=== PATIENT | female | born 1990 | race Hispanic/Latino ===

== ENCOUNTER 2017-11-18 14:26 | Emergency (ER) | payer OTHER ==
[~2017-11-18 14:26] MED LIST: Iopamidol 370 76% 100 ML VIAL ONE
[2017-11-18 14:55] LABS: Bilirubin Small (Negative); Blood, Urine Moderate (Negative); Clarity CLEAR (Clear); Glucose, Urine (Dipstick) Negative (Negative); Leukocyte Negative (Negative); Nitrite Negative (Negative); Protein, Urine (Dipstick) Trace mg/dL (Neg-Trace); Specific Gravity, Urine 1.035 (1.002-1.036); pH, Urine 6.5 (5.0-9.0)
[2017-11-18 14:57] LABS: Bacteria/HPF None Seen HPF (None Seen); Hyaline Casts/LPF 0-3 HYALINE CAST LPF (0-3 Hyaline); WBC/HPF 0-3 HPF (0-3)
[2017-11-18 15:03] LABS: #Basophils 0.1 thou/uL (0.0-0.2); #Lymphocytes 1.8 thou/uL (1.20-3.40); #Monocytes 0.7 thou/uL (0.11-0.59); #Neutrophils 7.9 thou/uL (1.40-6.50); %Basophils 0.6 % (0.0-1.0); %Eosinophils 0.3 % (0.0-10.0); %Lymphocytes 17.2 % (21.0-51.0); %Monocytes 6.9 % (0.0-10.0); Hemoglobin 13.3 g/dL (12.0-16.0); Mean Corpuscular HGB CONC 34.2 g/dL (32.0-36.0); Mean Corpuscular Hemoglobin 32.9 pg (27.0-31.0); Mean Platelet Volume 7.3 fL (7.4-10.4); Platelet Count 274 thou/uL (130-400); RBC Distribution Width 11.7 % (11.5-14.5); Red Blood Cell (RBC) Count 4.06 mill/uL (4.20-5.40); White Blood Cell (WBC) Count 10.5 thou/uL (4.8-10.8)
[2017-11-18 15:26] LABS: ALT (SGPT) 30 U/L (8-55); AST (SGOT) 44 U/L (5-34); Albumin 4.5 g/dL (3.5-5.0); Alkaline Phosphatase 65 U/L (40-150); Anion Gap 14 mmol/L (10-20); BUN (Urea Nitrogen) 18 mg/dL (7.0-18.7); Bilirubin, Total 0.4 mg/dL (0.2-1.2); Calc. Creatinine Clearance 0 mL/min (70-130); Calcium 9.6 mg/dL (7.8-10.44); Carbon Dioxide 22 mmol/L (22-29); Chloride 106 mmol/L (98-107); Estimated GFR-MDRD Greater than 90; Globulin 3.1 g/dL (2.4-3.5); Glucose 91 mg/dL (70-105); Potassium 3.8 mmol/L (3.5-5.1); Protein, Total 7.6 g/dL (6.0-8.3); Sodium 138 mmol/L (136-145)
[2017-11-18 15:39] LABS: Pregnancy Test - Urine (BHCG) Negative (Negative); Pregu Control Background? CLEAR/WHITE (CLR/WHITE); Pregu Control Bar Appear? YES (CONTROL BAR); Specific Gravity 1.035 (1.002-1.036)
[2017-11-18] MEDS ORDERED: Morphine 4 MG/ML Carpuject ONE (16:38)
[2017-11-18] MEDS ORDERED: Ondansetron HCl/PF 4 MG/2 ML Vial ONE (16:39)
[2017-11-18] MEDS ORDERED: Ketorolac Tromethamine 30 MG/ML VIAL ONE (16:52)
--- NOTE | 2017-11-18 19:08 | CT ---
CT ABDOMEN AND PELVIS WITH CONTRAST 11/18/17 HISTORY: Pain. COMPARISON: 05/15/14 examination. FINDINGS: The lung bases are clear. No pericardial effusion. IMPRESSION: There are bilateral adnexal hypodensities as well as another hypodensity in the right adnexa with per ipheral enhancement which may represent a paraovarian cyst. No dilated loops of large or small bowel. The appendix is visualized and is normal. Focal fatty infil tration of hepatic segment IVb. Spleen is normal as well as the pancreas. There is a calculus inferior pole right kidney, punctate, measuring less than 2 mm. Punctate calculus inferior pole left kidney is also present. Also nonobstructive. Skeleton is unremarkable. Scattered bone islands. The aortoiliac contour is normal. IMPRESSION: 1. Normal appendix. 2. Right paraovarian hypodensity somewhat anterior to the broad ligament. This is felt to be sep arate and anterior to the ovary. Ultrasound is recommended. 3. Punctate nonobstructive bilateral renal calculi. No evidence for recently passed stone. 1. POS: [facility]
--- NOTE | 2017-11-18 19:58 | ULT ---
ULTRASOUND PELVIS TRANSVAGINAL 11/18/17 HISTORY: Followup CT finding. COMPARISON: CT same day. FINDINGS: Uterus measures 10.2 x 4.2 x 5.3 cm. Endometrial thickness is 9 mm. Right ovary measures 3.2 x 2.9 x 2.9 cm and the left ovary measures 3.5 x 2.7 x 3.2 cm. There is adeq uate vascular flow to both ovaries. Along the broad ligament, is a 2.1 x 2 x 2.3 cm nonvascular hypoechoic area. IMPRESSION: Corresponding to the CT finding involving the broad ligament is a 2.1 x 2 x 2.3 hypoechoic nonvascula r area which may represent paraovarian cyst. POS: [facility]
[2017-11-20 21:00] LABS: Chlamydia by PCR Not Detected (NotDetected); GC by PCR Not Detected (NotDetected)
== END 2017-11-18 20:21 | disposition home or self-care (01) ==
LOC: ERS 14:26
DX: N83.201 Unspecified ovarian cyst, right side (principal); F41.9 Anxiety disorder, unspecified; Z87.891 Personal history of nicotine dependence; Z79.84 Long term (current) use of oral hypoglycemic drugs; Z79.899 Other long term (current) drug therapy
CPT/HCPCS: 74177; 76856; 80053; 81003; 81015; 81025; 85025; 87480; 87491; 87510; 87591; 87660; 96361; 96374; 96375; J1885; J2270; J2405

== ENCOUNTER 2018-02-13 09:31 | Emergency (ER) | payer OTHER, SELFPAY ==
[2018-02-13 10:16] LABS: #Basophils 0.1 thou/uL (0.0-0.2); #Eosinphils 0.1 thou/uL (0.0-0.7); #Lymphocytes 1.9 thou/uL (1.20-3.40); #Monocytes 0.4 thou/uL (0.11-0.59); #Neutrophils 3.4 thou/uL (1.40-6.50); %Lymphocytes 33.2 % (21.0-51.0); %Neutrophils 57.9 % (42.0-75.0); Hemoglobin 13.4 g/dL (12.0-16.0); Mean Corpuscular HGB CONC 33.1 g/dL (32.0-36.0); Mean Corpuscular Volume 96.5 fl (81.0-99.0); Mean Platelet Volume 7.6 fL (7.4-10.4); Platelet Count 244 thou/uL (130-400); RBC Distribution Width 12.2 % (11.5-14.5); White Blood Cell (WBC) Count 5.8 thou/uL (4.8-10.8)
[2018-02-13 10:27] LABS: BHCG - Serum Negative (NEGATIVE); Pregs Control Background? CLEAR/WHITE (CLR/WHITE); Pregs Control Bar Appear? YES (CONTROL BAR)
[2018-02-13 10:30] LABS: ALT (SGPT) 12 U/L (8-55); AST (SGOT) 13 U/L (5-34); Albumin 4.5 g/dL (3.5-5.0); Alkaline Phosphatase 48 U/L (40-150); Anion Gap 7 mmol/L (10-20); BUN (Urea Nitrogen) 15 mg/dL (7.0-18.7); Bilirubin, Total 0.4 mg/dL (0.2-1.2); Calc. Creatinine Clearance 0 mL/min (70-130); Calcium 9.3 mg/dL (7.8-10.44); Carbon Dioxide 26 mmol/L (22-29); Chloride 107 mmol/L (98-107); Estimated GFR-MDRD 82; Globulin 2.4 g/dL (2.4-3.5); Glucose 77 mg/dL (70-105); Lipase 31 U/L (8-78); Potassium 4.1 mmol/L (3.5-5.1); Protein, Total 6.9 g/dL (6.0-8.3); Sodium 136 mmol/L (136-145)
[2018-02-13 11:01] LABS: Bilirubin Negative (Negative); Blood, Urine Negative (Negative); Clarity CLEAR (Clear); Glucose, Urine (Dipstick) Negative (Negative); Leukocyte Negative (Negative); Nitrite Negative (Negative); Protein, Urine (Dipstick) Negative (Neg-Trace); Specific Gravity, Urine 1.012 (1.002-1.036)
--- NOTE | 2018-02-13 11:58 | ULT ---
ULTRASOUND PELVIC ULTRASOUND TRANSVAGINAL DOPPLER DUPLEX: DATE: 02-13-18 HISTORY: 27-year-old female with generalized pelvic pain. TECHNIQUE: Transabdominal transducer used to evaluate intrapelvic contents using the urinary bladder as an acous tic window. Endovaginal transducer used to visualize intrapelvic contents in greater detail. Color fl ow Doppler and Pulsed Doppler spectral waveform analysis of ovaries. FINDINGS: Uterus: 10 x 5 x 7 cm Endometrial stripe: 1.1 cm (11 mm) Right ovary: 2 x 4 x 2.5 cm Left ovary: 2 x 3.5 x 2.5 cm Uterine leiomyoma (fibroid): none Blood flow in both ovaries: Present Ovarian cyst (defined as 2 cm or greater): None, but there is a 1 cm prominent right follicle. Free fluid in the cul-de-sac: Minimal IMPRESSION: 1. Enlarged uterus, suggestive of multigravida status. 2. Otherwise negative. REYES Blair POS: [facility]
--- NOTE | 2018-02-13 14:07 | CT ---
CT ABDOMEN AND PELVIS WITH IV CONTRAST: Date: 02/13/18 HISTORY: Abdominal pain, right lower quadrant pain with nausea, vomiting, and hematochezia. FINDINGS: The lung bases are clear. The liver, spleen, pancreas, adrenal glands, and kidneys are normal. No opal cified gallstones are seen. No free air or lymphadenopathy is identified in the abdomen or pelvis. A tiny amount of free fluid is noted in the pelvis. A nondistended, normal appearing, air-containing ap pendix is present. Uterus and ovaries are also present. IMPRESSION: No evidence of appendicitis. POS: [facility]
[2018-02-13] MEDS ORDERED: ISOVUE-370 76%-LOCM 1 ML ONE (14:47)
[2018-02-14 22:45] LABS: Chlamydia by PCR Not Detected (NotDetected); GC by PCR Not Detected (NotDetected)
== END 2018-02-13 13:20 | disposition home or self-care (01) ==
LOC: ERS 09:31
DX: R10.31 Right lower quadrant pain (principal); E28.2 Polycystic ovarian syndrome; F41.9 Anxiety disorder, unspecified; Z87.891 Personal history of nicotine dependence; Z79.84 Long term (current) use of oral hypoglycemic drugs
CPT/HCPCS: 36415; 74177; 76856; 80053; 81003; 83690; 84703; 85025; 87480; 87491; 87510; 87591; 87660

== ENCOUNTER 2018-08-06 18:15 | Emergency (ER) | payer OTHER, SELFPAY ==
[~2018-08-06 18:15] MED LIST changes: +ISOVUE-370 76%-LOCM 1 ML ONE; -Iopamidol 370 76% 100 ML VIAL ONE
[2018-08-06 18:42] LABS: #Eosinphils 0.1 thou/uL (0.0-0.7); #Lymphocytes 2.7 thou/uL (1.20-3.40); #Monocytes 0.5 thou/uL (0.11-0.59); #Neutrophils 4.8 thou/uL (1.40-6.50); %Basophils 0.4 % (0.0-1.0); %Lymphocytes 33.5 % (21.0-51.0); %Monocytes 5.8 % (0.0-10.0); %Neutrophils 59.4 % (42.0-75.0); Hemoglobin 13.2 g/dL (12.0-16.0); Mean Corpuscular HGB CONC 32.2 g/dL (32.0-36.0); Mean Corpuscular Hemoglobin 30.8 pg (27.0-31.0); Mean Corpuscular Volume 95.9 fL (78.0-98.0); Mean Platelet Volume 7.2 fL (7.4-10.4); Platelet Count 250 thou/uL (130-400); RBC Distribution Width 11.7 % (11.5-14.5); Red Blood Cell (RBC) Count 4.28 mill/uL (4.20-5.40); White Blood Cell (WBC) Count 8.1 thou/uL (4.8-10.8)
[2018-08-06 18:44] LABS: Bilirubin Negative (Negative); Blood, Urine Negative (Negative); Clarity CLEAR (Clear); Glucose, Urine (Dipstick) Negative (Negative); Leukocyte Negative (Negative); Nitrite Negative (Negative); Pregnancy Test - Urine (BHCG) Negative (Negative); Pregu Control Background? CLEAR/WHITE (CLR/WHITE); Pregu Control Bar Appear? YES (CONTROL BAR); Protein, Urine (Dipstick) Negative (Neg-Trace); Urobilinogen 0.2 mg/dL (0.2-1.0)
[2018-08-06 19:04] LABS: ALT (SGPT) 11 U/L (8-55); AST (SGOT) 18 U/L (5-34); Albumin 4.5 g/dL (3.5-5.0); Alkaline Phosphatase 45 U/L (40-150); Anion Gap 11 mmol/L (10-20); BUN (Urea Nitrogen) 13 mg/dL (7.0-18.7); Bilirubin, Total 0.6 mg/dL (0.2-1.2); Calc. Creatinine Clearance 0 mL/min (70-130); Calcium 9.3 mg/dL (7.8-10.44); Carbon Dioxide 26 mmol/L (22-29); Chloride 107 mmol/L (98-107); Estimated GFR-MDRD Greater than 90; Globulin 2.8 g/dL (2.4-3.5); Glucose 79 mg/dL (70-105); Lipase 34 U/L (8-78); Potassium 3.6 mmol/L (3.5-5.1); Protein, Total 7.3 g/dL (6.0-8.3); Sodium 140 mmol/L (136-145)
[2018-08-06] MEDS ORDERED: Ketorolac Tromethamine 30 MG/ML VIAL ONE (20:14)
--- NOTE | 2018-08-06 20:43 | CT ---
CT ABDOMEN WITH CONTRAST CT PELVIS WITH CONTRAST: DATE: 08-06-18 TIME: 8:13 p.m. HISTORY: 28-year-old female with right flank pain for one week. COMPARISON: 02-13-18 TECHNIQUE: IV injection of iodinated contrast media: Isovue Oral contrast media: Not administered FINDINGS: There is a new finding of a 5 x 4 x 4 cm right adnexal cyst with thin pradhan. The appendix is retrocec al and normal. There is a punctate 3 x 2 x 2 mm calculus at a right renal lower pole calyx. This was present on the previous scan. Otherwise, the bilateral kidneys, abdominal aorta, pancreas, adrenals, spleen, and bladder are normal. There is a small amount of free fluid in the cul-de-sac, slightly gre ater than on previous CT. No small bowel dilatation. No signs of colonic diverticulitis. IMPRESSION: 1. A 5 cm right ovarian cyst. 2. Nephrolithiasis consisting of a single tiny right renal calculus. 3. Normal appendix. REYES Blair POS: [facility]
--- NOTE | 2018-08-06 22:55 | ULT ---
ULTRASOUND TRANSVAGINAL DOPPLER DUPLEX: Date: 08-06-18 Time: 9:45 p.m. History: 28-year-old female with pelvic pain and adnexal cysts. Technique: Endovaginal transducer used to evaluate intrapelvic contents with osborn scale, color flow, and spectra l analysis. FINDINGS: There is an approximately 4.5 x 3.5 x 4.5 cm well circumscribed cyst entirely within the right ovary. The right ovary is expanded by the cyst, measuring approximately 5.5 x 5.5 x 4.5 cm. Blood flow is d emonstrated in the ovarian tissue surrounding this cyst. The left ovary is 4 x 2.5 x 2.5 cm, has normal follicles and also has blood flow. There is a tiny amount of free fluid posterior to the external cervical os. Uterus is approximately 9 x 5 x 5.5 cm. Endometrial stripe is approximately 1 cm (10 mm). IMPRESSION: 4.5 cm right ovarian cyst. POS: [facility]
== END 2018-08-06 23:02 | disposition home or self-care (01) ==
LOC: ERS 18:15
DX: N83.201 Unspecified ovarian cyst, right side (principal); F41.9 Anxiety disorder, unspecified; Z79.84 Long term (current) use of oral hypoglycemic drugs; Z79.899 Other long term (current) drug therapy
CPT/HCPCS: 36415; 74177; 76856; 80053; 81003; 81025; 83690; 85025; 96374; J1885

== ENCOUNTER 2018-11-06 16:08 | Emergency (ER) | payer SELFPAY ==
[2018-11-06 17:03] LABS: #Basophils 0.1 thou/uL (0.0-0.2); #Lymphocytes 1.9 thou/uL (1.20-3.40); #Monocytes 0.6 thou/uL (0.11-0.59); #Neutrophils 7.3 thou/uL (1.40-6.50); %Basophils 0.8 % (0.0-1.0); %Eosinophils 0.4 % (0.0-10.0); %Lymphocytes 19.3 % (21.0-51.0); %Monocytes 6.3 % (0.0-10.0); %Neutrophils 73.2 % (42.0-75.0); Hemoglobin 12.7 g/dL (12.0-16.0); Mean Corpuscular HGB CONC 33.9 g/dL (32.0-36.0); Mean Corpuscular Hemoglobin 32.2 pg (27.0-31.0); Mean Corpuscular Volume 94.9 fL (78.0-98.0); Mean Platelet Volume 7.5 fL (7.4-10.4); Platelet Count 236 thou/uL (130-400); RBC Distribution Width 11.6 % (11.5-14.5); Red Blood Cell (RBC) Count 3.95 mill/uL (4.20-5.40); White Blood Cell (WBC) Count 9.9 thou/uL (4.8-10.8)
[2018-11-06] MEDS ORDERED: Ketorolac Tromethamine 30 MG/ML VIAL ONE (17:48)
[2018-11-06] MEDS ORDERED: Morphine 4 MG/ML VIAL ONE (17:48)
[2018-11-06 17:52] LABS: BHCG - Serum Negative (NEGATIVE); Pregs Control Background? CLEAR/WHITE (CLR/WHITE); Pregs Control Bar Appear? YES (CONTROL BAR)
[2018-11-06] MEDS ORDERED: Ondansetron PF 4 MG/2 ML Vial ONE ×2 (17:56→17:58)
[2018-11-06 18:01] LABS: ALT (SGPT) 18 U/L (8-55); AST (SGOT) 29 U/L (5-34); Albumin 4.2 g/dL (3.5-5.0); Alkaline Phosphatase 44 U/L (40-150); Anion Gap 13 mmol/L (10-20); BUN (Urea Nitrogen) 15 mg/dL (7.0-18.7); Bilirubin, Total 0.4 mg/dL (0.2-1.2); Calc. Creatinine Clearance 0 mL/min (70-130); Calcium 9.2 mg/dL (7.8-10.44); Carbon Dioxide 25 mmol/L (22-29); Chloride 105 mmol/L (98-107); Estimated GFR-MDRD 90; Globulin 2.8 g/dL (2.4-3.5); Glucose 96 mg/dL (70-105); Potassium 3.7 mmol/L (3.5-5.1); Sodium 139 mmol/L (136-145)
[2018-11-06 18:10] LABS: CRP (Inflammatory) Less than 0.50 mg/dL (= or < 0.5); Lipase 15 U/L (8-78)
[2018-11-06] MEDS ORDERED: diphenhydrAMINE 50 MG/ML VIAL ONE (18:18)
[2018-11-06 18:30] LABS: Bilirubin Negative (Negative); Blood, Urine Large (Negative); Clarity CLOUDY (Clear); Glucose, Urine (Dipstick) Negative (Negative); Leukocyte Moderate (Negative); Nitrite Positive (Negative); Protein, Urine (Dipstick) 100 mg/dL (Neg-Trace); Specific Gravity, Urine 1.021 (1.002-1.036); Urobilinogen 0.2 mg/dL (0.2-1.0)
[2018-11-06 18:33] LABS: Bacteria/HPF 4+ HPF (None Seen); Hyaline Casts/LPF 0-3 HYALINE CAST LPF (0-3 Hyaline); Pathc Cast-AUWi Flag 0.14 (0-2.49); Squamous Epithelial 0-3 HPF (0-3)
--- NOTE | 2018-11-06 18:35 | CT ---
CT ABDOMEN AND PELVIS WITH IV CONTRAST: 11/06/2018 HISTORY: Abdominal pain. Lower GI bleed. Low back pain. COMPARISON: 08/06/2018 FINDINGS: The lung bases remain clear. The previously noted nonobstructing inferior pole 3 mm calculus is again present. The liver, spleen, pancreas, bilateral adrenal glands, left kidney, abdominal aorta, decompressed uri nary bladder, and uterus demonstrate a normal CT appearance. The previously seen large, hypodense, cystic structure in the right adnexal region has resolved. The adnexal regions otherwise have a grossly normal appearance bilaterally, and a probable small, involu ting cyst or follicle in the right ovary. There is trace amount of free fluid in the cul-de-sac, probably physiologic in origin. The appendix is visualized and filled with gas and normal in caliber. The small bowel is normal in caliber. A sclerotic density is again present in the right femoral head /neck junction, demonstrating characteristics most compatible with a bone island. IMPRESSION: 1. No acute findings are seen in the abdomen or pelvis. 2. Stable nonobstructing inferior pole right renal calculus. 3. Resolution of previously noted right adnexal cystic lesion. 4. Trace amount of free fluid in the pelvis, likely physiologic in origin. POS: [facility]
[2018-11-06 18:42] LABS: Yeast-AUWi Flag 71.9 (0-25.0)
[2018-11-06 18:46] LABS: Pregnancy Test - Urine (BHCG) Negative (Negative); Pregu Control Background? CLEAR/WHITE (CLR/WHITE); Pregu Control Bar Appear? YES (CONTROL BAR); Specific Gravity 1.021 (1.002-1.036)
[2018-11-06 18:47] LABS: Yeast-All Forms None Seen HPF (None Seen)
[2018-11-06] MEDS ORDERED: Sodium Chloride 0.9% 100 ML ONE (19:18)
[2018-11-06] MEDS ORDERED: cefTRIAXone\\ROCEPHIN 1 GM VIAL ONE (19:19)
== END 2018-11-06 21:36 | disposition home or self-care (01) ==
LOC: ERS 16:08
DX: N12 Tubulo-interstitial nephritis, not specified as acute or chronic (principal); K62.5 Hemorrhage of anus and rectum; F41.9 Anxiety disorder, unspecified; Z87.891 Personal history of nicotine dependence
CPT/HCPCS: 36415; 74177; 80053; 81003; 81015; 81025; 83690; 84703; 85025; 86140; 96361; 96365; 96375; J0696; J1200; J1885; J2270; J2405; J7050

== ENCOUNTER 2018-12-11 04:39 | Emergency (ER) | payer SELFPAY ==
[2018-12-11 05:15] LABS: #Eosinphils 0.1 thou/uL (0.0-0.7); #Lymphocytes 2.2 thou/uL (1.20-3.40); #Monocytes 0.6 thou/uL (0.11-0.59); #Neutrophils 7.2 thou/uL (1.40-6.50); %Basophils 0.4 % (0.0-1.0); %Lymphocytes 21.6 % (21.0-51.0); %Monocytes 6.2 % (0.0-10.0); %Neutrophils 70.8 % (42.0-75.0); Hemoglobin 13.8 g/dL (12.0-16.0); Mean Corpuscular HGB CONC 33.5 g/dL (32.0-36.0); Mean Corpuscular Hemoglobin 32.4 pg (27.0-31.0); Mean Corpuscular Volume 96.8 fL (78.0-98.0); Mean Platelet Volume 7.4 fL (7.4-10.4); Platelet Count 258 thou/uL (130-400); RBC Distribution Width 11.3 % (11.5-14.5); Red Blood Cell (RBC) Count 4.26 mill/uL (4.20-5.40); White Blood Cell (WBC) Count 10.2 thou/uL (4.8-10.8)
[2018-12-11 05:35] LABS: ALT (SGPT) 11 U/L (8-55); AST (SGOT) 14 U/L (5-34); Albumin 4.3 g/dL (3.5-5.0); Alkaline Phosphatase 43 U/L (40-150); Anion Gap 13 mmol/L (10-20); BUN (Urea Nitrogen) 17 mg/dL (7.0-18.7); Bilirubin, Total 0.4 mg/dL (0.2-1.2); Calc. Creatinine Clearance 0 mL/min (70-130); Calcium 9.1 mg/dL (7.8-10.44); Carbon Dioxide 25 mmol/L (22-29); Chloride 106 mmol/L (98-107); Estimated GFR-MDRD 81; Globulin 2.8 g/dL (2.4-3.5); Glucose 101 mg/dL (70-105); Potassium 3.8 mmol/L (3.5-5.1); Protein, Total 7.1 g/dL (6.0-8.3); Sodium 140 mmol/L (136-145)
[2018-12-11 05:39] LABS: Bilirubin Negative (Negative); Blood, Urine Large (Negative); Clarity CLOUDY (Clear); Glucose, Urine (Dipstick) Negative (Negative); Leukocyte Small (Negative); Nitrite Positive (Negative); Protein, Urine (Dipstick) 300 mg/dL (Neg-Trace); Specific Gravity, Urine 1.028 (1.002-1.036); Urobilinogen 0.2 mg/dL (0.2-1.0)
[2018-12-11 05:41] LABS: Bacteria/HPF 4+ HPF (None Seen); Hyaline Casts/LPF 4-6 HYALINE CAST LPF (0-3 Hyaline); Pathc Cast-AUWi Flag 1.67 (0-2.49); Pregnancy Test - Urine (BHCG) Negative (Negative); RBC/HPF GREATER THAN 50-TNTC HPF (0-3)
[2018-12-11 05:42] LABS: Pregu Control Background? CLEAR/WHITE (CLR/WHITE); Pregu Control Bar Appear? YES (CONTROL BAR); Specific Gravity 1.028 (1.002-1.036)
[2018-12-11] MEDS ORDERED: Ondansetron PF 4 MG/2 ML Vial ONE (05:45)
[2018-12-11] MEDS ORDERED: Ketorolac Tromethamine 30 MG/ML VIAL ONE (05:45)
[2018-12-11] MEDS ORDERED: cefTRIAXone\\ROCEPHIN 1 GM VIAL ONE (06:06)
--- NOTE | 2018-12-11 08:37 | CT ---
PRELIMINARY REPORT/[facility]/EMERGENTY AFTER-HOURS PROCEDURE CT Abdomen and Pelvis With Contrast EXAM DATE/TIME: 12/11/2018 6:20 AM CLINICAL HISTORY: 28 years old, female; Pain; Abdominal pain; Generalized; Additional info: F28 presents to ed for back pain. PT reports the pain woke her from sleep, radiates to front. PT reports n/v that began after pa in. PT reports having bladder infection a few weeks ago with similar SX, finished abx. PT denies feve r or chills. PT has not eaten today. PT reports changes in stool, more frequent and harder stools. PT denies ent SX, resp SX, denies rash, denies changes or pain w urination. Lmp 12/05/18. Hx- allergy to reglan. TECHNIQUE: Axial computed tomography images of the abdomen and pelvis with intravenous contrast. Coronal reforma tted images were created and reviewed. COMPARISON: No relevant prior studies available. FINDINGS: Lower thorax: The visualized portions of the lung bases are normal. ABDOMEN: Liver: There are no focal liver lesions identified. Gallbladder and bile ducts: The gallbladder is normal. There is no evidence of biliary ductal dilatio n. Pancreas: The pancreas appears normal. No ductal dilatation. Spleen: The spleen is normal. Adrenals: The adrenal glands are normal. Kidneys and ureters: The kidneys appear normal. No hydronephrosis. Stomach and bowel: The stomach is normal. The duodenum is unremarkable. The colon is normal. Appendix: A normal appendix is identified. PELVIS: Bladder: The bladder is normal. Reproductive: The uterus is normal. ABDOMEN and PELVIS: Intraperitoneal space: Normal. No free air. No significant fluid collection. Bones/joints: No acute fracture. No dislocation. Soft tissues: Unremarkable. Vasculature: Normal. No abdominal aortic aneurysm. Lymph nodes: Normal. No enlarged lymph nodes. IMPRESSION: No acute abdominal pelvic pathology. Thank you for allowing us to participate in the care of your patient. Dictated and Authenticated by: Fredrick Degroot MD 12/11/2018 6:49 AM Central Time ([place] & [place]) FINAL REPORT CT ABDOMEN WITH CONTRAST CT PELVIS WITH CONTRAST: Date: 12/11/18 COMPARISON: 11/06/18. HISTORY: Low back pain. Flank pain. FINDINGS: This report is in agreement with the preliminary report by [facility]. No acute abnormalities in the abdome n or pelvis. No evidence of obstructive uropathy. No evidence of bowel obstruction. Normal caliber ap pendix is identified. POS: [facility]
[2018-12-11] MEDS ORDERED: ISOVUE-370 76%-LOCM 1 ML ONE (16:57)
== END 2018-12-11 06:55 | disposition home or self-care (01) ==
LOC: ERS 04:39
DX: N12 Tubulo-interstitial nephritis, not specified as acute or chronic (principal); F41.9 Anxiety disorder, unspecified; Z87.891 Personal history of nicotine dependence
CPT/HCPCS: 36415; 74177; 80053; 81003; 81015; 81025; 83690; 85025; 87077; 87086; 87186; 96365; 96375; J0696; J1885; J2405; Q9966

== ENCOUNTER 2019-03-29 17:14 | Emergency (ER) | payer SELFPAY ==
--- NOTE | 2019-03-29 17:50 | RAD ---
3 views right wrist. HISTORY: Right wrist pain after fall and swelling. AP, lateral and oblique views right wrist is obtained. 3 views right wrist demonstrate no evidence of right wrist fractures, subluxations or bony lesions. IMPRESSION: normal 3 views right wrist.
== END 2019-03-29 18:18 | disposition home or self-care (01) ==
LOC: ERS 17:14
DX: S60.211A Contusion of right wrist, initial encounter (principal); Z87.891 Personal history of nicotine dependence; W19.XXXA Unspecified fall, initial encounter

== ENCOUNTER 2019-05-14 20:54 | Emergency (ER) | payer SELFPAY | END 2019-05-14 21:50 | disposition left against medical advice (07) | LOC: ERS 20:54 | DX: Z53.21 Procedure and treatment not carried out due to patient leaving prior to being seen by health care provider (principal) ==

== ENCOUNTER 2019-05-16 10:18 | Emergency (ER) | payer SELFPAY ==
[2019-05-16 10:59] LABS: Bilirubin Negative (Negative); Blood, Urine Negative (Negative); Glucose, Urine (Dipstick) Negative (Negative); Leukocyte Negative (Negative); Nitrite Negative (Negative); Protein, Urine (Dipstick) Negative (Neg-Trace); Urobilinogen 0.2 mg/dL (Less than 2)
[2019-05-16 11:00] LABS: #Basophils 0.1 thou/uL (0.0-0.2); #Lymphocytes 2.2 thou/uL (1.20-3.40); #Monocytes 0.4 thou/uL (0.11-0.59); %Basophils 0.7 % (0.0-1.0); %Eosinophils 0.6 % (0.0-10.0); %Lymphocytes 28.5 % (21.0-51.0); %Monocytes 5.2 % (0.0-10.0); Hemoglobin 13.7 g/dL (12.0-16.0); Mean Corpuscular HGB CONC 33.5 g/dL (32.0-36.0); Mean Corpuscular Hemoglobin 31.5 pg (27.0-31.0); Mean Corpuscular Volume 93.9 fL (78.0-98.0); Mean Platelet Volume 7.2 fL (7.4-10.4); Platelet Count 243 thou/uL (130-400); RBC Distribution Width 11.5 % (11.5-14.5); Red Blood Cell (RBC) Count 4.36 mill/uL (4.20-5.40); White Blood Cell (WBC) Count 7.6 thou/uL (4.8-10.8)
[2019-05-16 11:03] LABS: Clarity Clear (Clear)
[2019-05-16] MEDS ORDERED: Ondansetron ODT 4 MG TAB ONE (12:28)
--- NOTE | 2019-05-16 14:51 | ULT ---
PELVIC ULTRASOUND: COMPARISON: None. HISTORY: female with abdominal pain. TECHNIQUE: Multiplanar, osborn scale, and color Doppler images were obtained in a transabdominal and transvaginal pelvic ultrasound. Spectral analysis of the Doppler waveforms of the ovaries was performed. FINDINGS: There is a small gestational sac within the uterus. Does not yet contain a pole or yolk sac. Mean sac diameter is 0.92 cm which estimates gestational age at 5 weeks 5 days. A small amount of free fluid is seen in the pelvis. Both ovaries are normal in size and appearance a nd demonstrate normal internal flow. IMPRESSION: Likely early intrauterine with estimated age of 5 weeks 5 days. POS: [facility]
== END 2019-05-16 14:53 | disposition home or self-care (01) ==
LOC: ERS 10:18
DX: O26.891 Other specified pregnancy related conditions, first trimester (principal); R10.9 Unspecified abdominal pain; F41.9 Anxiety disorder, unspecified; Z87.891 Personal history of nicotine dependence; Z3A.01 Less than 8 weeks gestation of pregnancy
CPT/HCPCS: 36415; 76856; 81003; 84702; 85025; Q0162

== ENCOUNTER 2019-05-29 09:53 | Emergency (ER) | payer SELFPAY | END 2019-05-29 11:43 | disposition left against medical advice (07) | LOC: ERS 09:53 | DX: Z53.21 Procedure and treatment not carried out due to patient leaving prior to being seen by health care provider (principal) ==

== ENCOUNTER 2019-07-19 07:51 | Outpatient (CLI) | payer OTHER ==
--- NOTE | 2019-07-19 09:52 | ULT ---
LIMITED LEFT BREAST ULTRASOUND: 07/19/2019 PROVIDED CLINICAL HISTORY: Left breast palpable abnormality. FINDINGS: Limited sonographic interrogation was performed to the left breast, at the 12 and 1 o'clock positions , in the region of reported palpable concern. The sonographic appearance of the breast parenchyma in this region is normal. IMPRESSION: No sonographic abnormality is evident to correlate with the reported palpable finding. Negative imaging findings should not preclude further evaluation of a clinically suspicious area. Th e patient is referred back to her clinician. POS: [facility]
== END 2019-07-19 07:52 | disposition home or self-care (01) ==
LOC: BICULT 07:51
PROVIDERS: ATTEND Family Medicine
DX: Z34.81 Encounter for supervision of other normal pregnancy, first trimester (principal); N63.0 Unspecified lump in unspecified breast

== ENCOUNTER 2019-08-15 16:55 | Emergency (ER) | payer OTHER | END 2019-08-15 17:45 | disposition home or self-care (01) | LOC: ERS 16:55 | DX: M79.622 Pain in left upper arm (principal); F41.9 Anxiety disorder, unspecified; E28.2 Polycystic ovarian syndrome; Z87.891 Personal history of nicotine dependence | CPT/HCPCS: 99281 ==

== ENCOUNTER 2019-09-16 06:06 | Emergency (ER) | payer OTHER ==
[2019-09-16 06:40] LABS: #Basophils 0.1 thou/uL (0.0-0.2); #Eosinphils 0.1 thou/uL (0.0-0.7); #Lymphocytes 1.9 thou/uL (1.20-3.40); #Monocytes 0.5 thou/uL (0.11-0.59); #Neutrophils 5.7 thou/uL (1.40-6.50); %Eosinophils 1.3 % (0.0-10.0); %Lymphocytes 23.5 % (21.0-51.0); %Monocytes 6.1 % (0.0-10.0); %Neutrophils 68.2 % (42.0-75.0); Hemoglobin 11.3 g/dL (12.0-16.0); Mean Corpuscular HGB CONC 34.7 g/dL (32.0-36.0); Mean Corpuscular Hemoglobin 33.1 pg (27.0-31.0); Mean Corpuscular Volume 95.3 fL (78.0-98.0); Platelet Count 249 thou/uL (130-400); RBC Distribution Width 11.4 % (11.5-14.5); Red Blood Cell (RBC) Count 3.42 mill/uL (4.20-5.40); White Blood Cell (WBC) Count 8.3 thou/uL (4.8-10.8)
[2019-09-16 06:51] LABS: Bacteria/HPF 3+ HPF (None Seen); Bilirubin Negative (Negative); Blood, Urine Trace (Negative); Clarity Turbid (Clear); Glucose, Urine (Dipstick) Normal (Negative); Leukocyte 500 Leu/uL (Negative); Nitrite Negative (Negative); Protein, Urine (Dipstick) 50 mg/dL (Neg-Trace); Squamous Epithelial Greater than 50 HPF (0-3); Urobilinogen Normal mg/dL (Less than 2)
[2019-09-16 07:01] LABS: ALT (SGPT) 7 U/L (8-55); AST (SGOT) 13 U/L (5-34); Albumin 3.9 g/dL (3.5-5.0); Alkaline Phosphatase 49 U/L (40-110); Anion Gap 12 mmol/L (10-20); BUN (Urea Nitrogen) 14 mg/dL (7.0-18.7); Bilirubin, Total 0.4 mg/dL (0.2-1.2); Calc. Creatinine Clearance 0 mL/min (70-130); Calcium 8.7 mg/dL (7.8-10.44); Carbon Dioxide 23 mmol/L (22-29); Chloride 106 mmol/L (98-107); Estimated GFR-MDRD Greater than 90; Globulin 2.7 g/dL (2.4-3.5); Glucose 79 mg/dL (70-105); Potassium 3.9 mmol/L (3.5-5.1); Protein, Total 6.6 g/dL (6.0-8.3); Sodium 137 mmol/L (136-145)
[2019-09-16] MEDS ORDERED: Ondansetron ODT 4 MG TAB ONE (07:44)
== END 2019-09-16 08:29 | disposition home or self-care (01) ==
LOC: ERS 06:06
DX: O23.12 Infections of bladder in pregnancy, second trimester (principal); O21.9 Vomiting of pregnancy, unspecified; O99.342 Other mental disorders complicating pregnancy, second trimester; F41.9 Anxiety disorder, unspecified; Z87.891 Personal history of nicotine dependence; Z3A.23 23 weeks gestation of pregnancy
CPT/HCPCS: 36415; 80053; 81003; 81015; 85025; 86900; 86901; 99284; Q0162

== ENCOUNTER 2019-09-17 08:35 | Day surgery (SDC) | payer OTHER ==
[2019-09-17 09:50] LABS: #Eosinphils 0.1 thou/uL (0.0-0.7); #Lymphocytes 1.7 thou/uL (1.20-3.40); #Monocytes 0.4 thou/uL (0.11-0.59); #Neutrophils 6.2 thou/uL (1.40-6.50); %Basophils 0.3 % (0.0-1.0); %Eosinophils 0.8 % (0.0-10.0); %Lymphocytes 19.6 % (21.0-51.0); %Monocytes 5.2 % (0.0-10.0); BHCG - Serum POSITIVE (NEGATIVE); Hemoglobin 11.9 g/dL (12.0-16.0); Mean Corpuscular HGB CONC 34.2 g/dL (32.0-36.0); Mean Corpuscular Hemoglobin 32.6 pg (27.0-31.0); Mean Corpuscular Volume 95.1 fL (78.0-98.0); Mean Platelet Volume 7.6 fL (7.4-10.4); Platelet Count 253 thou/uL (130-400); Pregs Control Background? CLEAR/WHITE (CLR/WHITE); Pregs Control Bar Appear? YES (CONTROL BAR); RBC Distribution Width 11.4 % (11.5-14.5); Red Blood Cell (RBC) Count 3.64 mill/uL (4.20-5.40); White Blood Cell (WBC) Count 8.4 thou/uL (4.8-10.8)
[2019-09-17 09:59] LABS: ALT (SGPT) 10 U/L (8-55); AST (SGOT) 14 U/L (5-34); Alkaline Phosphatase 47 U/L (40-110); Anion Gap 12 mmol/L (10-20); BUN (Urea Nitrogen) 11 mg/dL (7.0-18.7); Bilirubin, Total 0.4 mg/dL (0.2-1.2); Calc. Creatinine Clearance 0 mL/min (70-130); Calcium 8.8 mg/dL (7.8-10.44); Carbon Dioxide 23 mmol/L (22-29); Chloride 105 mmol/L (98-107); Estimated GFR-MDRD Greater than 90; Globulin 2.9 g/dL (2.4-3.5); Glucose 116 mg/dL (70-105); Lipase 16 U/L (8-78); Potassium 3.9 mmol/L (3.5-5.1); Protein, Total 6.9 g/dL (6.0-8.3); Sodium 136 mmol/L (136-145)
[2019-09-17 10:25] VITALS: BMI 27.3
--- NOTE | 2019-09-17 11:48 | ULT ---
GALLBLADDER ULTRASOUND: Date: 09/17/19 HISTORY: Right upper quadrant pain. FINDINGS: Real-time imaging of the right upper quadrant shows a somewhat contracted gallbladder. The patient wa s reportedly not NPO for this procedure and there is a negative ultrasound Mclaughlin's sign. The common bile duct is in the 5-6 mm range. Visualized liver parenchyma is normal. The liver measures 13.4 cm i n length. Right kidney is normal in size and not obstructed. Pancreas partially obscured. IMPRESSION: Contracted gallbladder. Patient was not NPO for this procedure. No gallstones identified. POS: [facility]
--- NOTE | 2019-09-17 23:02 | PRG ---
DATE OF SERVICE: 09/17/2019 PRIMARY OB: Brian Clark MD CHIEF COMPLAINT: Abdominal pain. HISTORY OF PRESENT ILLNESS: The patient is a 29-year-old G4, P2 female with an intrauterine at 23 weeks and 3 days, re-presenting to the emergency room this morning with abdominal pain that began about 3:30 in the morning. She was initially seen yesterday in the emergency room for nausea and vomiting at which point a CBC, CMP, and ultrasound were performed and found to be normal and was diagnosed with a urinary tract infection, sent home with Keflex. The patient re-presented to the emergency room today again with right upper quadrant and upper left quadrant abdominal pain, rated initially 10/10. Workup including a right upper quadrant ultrasound showed all normal findings. No evidence of gallstones and was sent up to Labor and Delivery for evaluation. Here in Labor and Delivery, during our evaluation, the patient reported that she has had 2-day sudden onset of nausea, vomiting, and diarrhea and has been able to maintain fluids tolerably with Zofran that had been prescribed. She denies any uterine contractions or any obstetrical complaints. She reports that this pain that she is having in her abdomen is in her lateral side just inferior to the rib cage. This area hurts worse with activities and movements, deep breaths. The patient denies any fever. She denies headache, chest pain, shortness of breath. She reports nausea, vomiting, diarrhea. Denies constipation. Denies any new rashes, hip problems, knee problems, muscle weakness. Denies vaginal bleeding, leakage of fluid. Denies urinary urgency or frequency. PAST MEDICAL HISTORY: Negative. PAST SURGICAL HISTORY: Negative. ALLERGIES: REGLAN WHICH CAUSES FACIAL SPASMS. MEDICATIONS: vitamins. SOCIAL HISTORY: Denies drug, alcohol, or tobacco use. OB HISTORY: She has had 2 term spontaneous vaginal deliveries and a 1st trimester miscarriage. OB LABS: Unavailable at time of dictation. This morning, white count is 8.4, hemoglobin 11.9, hematocrit 34.6, and platelets of 253,000. Sodium 136, potassium 3.9, chloride 105, BUN 11, creatinine 0.64, glucose of 116, AST of 14, ALT of 10, lipase of 16. REVIEW OF SYSTEMS: Per HPI. PHYSICAL EXAMINATION: VITAL SIGNS: Blood pressure is 119/68, temperature 98.3, pulse of 80, respiratory rate 18, saturating 99% on room air. GENERAL: The patient is alert, oriented, cooperative, and pleasant to interact with. She appears to be in some mild discomfort. HEENT: Extraocular muscles intact and symmetrical. RESPIRATORY: Lungs are clear to auscultation bilaterally. HEART: Has a regular rate and rhythm. ABDOMEN: Gravid, soft. No acute findings such as peritoneal signs, rebound, or radiation. She does have some point tenderness in the right lateral quadrant over oblique muscular area. This is the area that is causing her pain, it is the area that hurts when she takes a deep breath and when she moves. The patient has negative Mclaughlin sign. EXTREMITIES: Nontender, nonedematous. heart tracing: Fetus has a baseline in the 140s with moderate long-term variability, actually positive 10 x 10 and a couple of 15 x 15 accelerations, no decelerations. Tocometer has some minimal irritability, but not felt by the patient. ASSESSMENT AND PLAN: The patient is a 29-year-old G4, P2 female with an intrauterine at 23 weeks and 3 days, presenting with a 2-day history of nausea, vomiting, and diarrhea with a 1-day history of acute upper lateral abdominal pain. The patient has no evidence of gallbladder disease or other acute findings on imaging and lab work. The patient has no evidence of labor or other concerning obstetric findings. Working diagnosis is a viral gastroenteritis with musculoskeletal pain likely secondary to vomiting and muscle spasm. The patient has been given IV fluids. She reports that she is able to keep fluid down at home with the Zofran, which we have encouraged that she continue to take. The patient has been counseled that these symptoms should improve with the next day or two and she has been counseled to make an appointment with Dr. Clark to see her in the next few days for followup. Fetus is reassuring for gestational age. Job ID: [id number]
== END 2019-09-17 11:15 | disposition home or self-care (01) ==
LOC: ERS 08:35 → L&D/OP 09:54
PROVIDERS: ATTEND Family Medicine
DX: O99.89 Other specified diseases and conditions complicating pregnancy, childbirth and the puerperium (principal); R10.11 Right upper quadrant pain; R10.12 Left upper quadrant pain; Z3A.23 23 weeks gestation of pregnancy; Z88.8 Allergy status to other drugs, medicaments and biological substances
CPT/HCPCS: 36415; 76705; 80053; 83690; 84703; 85025; 99282

== ENCOUNTER 2019-09-21 09:36 | Emergency (ER) | payer OTHER | END 2019-09-21 10:38 | disposition left against medical advice (07) | LOC: ERS 09:36 | DX: Z53.21 Procedure and treatment not carried out due to patient leaving prior to being seen by health care provider (principal) ==

== ENCOUNTER 2019-12-14 00:20 | Day surgery (SDC) | payer OTHER ==
[2019-12-14 00:52] VITALS: BMI 32.1
[2019-12-14] MEDS ORDERED: hydrALAZINE 20 MG/ML VIAL SLOW IVP PRN (01:08)
[2019-12-14] MEDS ORDERED: Morphine 4 MG/ML VIAL SLOW IVP SCH ×2 (01:15→04:45)
[2019-12-14] MEDS ORDERED: diphenhydrAMINE 50 MG/ML VIAL IVP SCH ×2 (01:15→04:00)
[2019-12-14 01:24] LABS: Bacteria/HPF 1+ HPF (None Seen); Bilirubin Negative (Negative); Blood, Urine Negative (Negative); Clarity Clear (Clear); Glucose, Urine (Dipstick) Normal (Negative); Leukocyte Negative Leu/uL (Negative); Nitrite Negative (Negative); Protein, Urine (Dipstick) Negative (Neg-Trace); RBC/HPF 0-3 HPF (0-3); Squamous Epithelial 0-3 HPF (0-3); Urobilinogen Normal mg/dL (Less than 2); WBC/HPF 0-3 HPF (0-3)
[2019-12-14 01:57] LABS: Hemoglobin 10.9 g/dL (12.0-16.0); Mean Corpuscular HGB CONC 32.1 g/dL (32.0-36.0); Mean Corpuscular Hemoglobin 29.3 pg (27.0-31.0); Mean Corpuscular Volume 91.3 fL (78.0-98.0); Mean Platelet Volume 7.5 fL (7.4-10.4); Platelet Count 283 thou/uL (130-400); Red Blood Cell (RBC) Count 3.72 mill/uL (4.20-5.40); White Blood Cell (WBC) Count 14.1 thou/uL (4.8-10.8)
[2019-12-14] MEDS: Magnesium 2 GM/50 ML 2 GM in Premix Bag 1 BAG IVPB SCH ×2 (02:18→03:24)
[2019-12-14 02:22] LABS: ALT (SGPT) 11 U/L (8-55); AST (SGOT) 13 U/L (5-34); Albumin 3.5 g/dL (3.5-5.0); Alkaline Phosphatase 121 U/L (40-110); Anion Gap 11 mmol/L (10-20); BUN (Urea Nitrogen) 8 mg/dL (7.0-18.7); Bilirubin, Total 0.3 mg/dL (0.2-1.2); Calc. Creatinine Clearance 193 mL/min (70-130); Carbon Dioxide 25 mmol/L (22-29); Chloride 104 mmol/L (98-107); Estimated GFR-MDRD Greater than 90; Globulin 3.4 g/dL (2.4-3.5); Glucose 95 mg/dL (70-105); Potassium 4.2 mmol/L (3.5-5.1); Protein, Total 6.9 g/dL (6.0-8.3); Sodium 136 mmol/L (136-145); Uric Acid 3.5 mg/dL (2.6-6.0)
[2019-12-14] MEDS ORDERED: Lactated Ringer's 1,000 ML IV SCH (04:15)
[2019-12-14] MEDS ORDERED: Ondansetron ODT 8 MG TAB SL SCH (04:30)
--- NOTE | 2019-12-14 08:09 | PRG ---
DATE OF SERVICE: 12/14/2019 PRIMARY OB: Brian Clark MD CHIEF COMPLAINT: Headache. HISTORY OF PRESENT ILLNESS: The patient is a 29-year-old G4, P2, female with an intrauterine at 36 weeks and 0 days, who is presenting to Labor and Delivery with a several-day history of severe headache, worse that she has ever had. She had seen Dr. Clark earlier in the day in the morning and was prescribed muscle relaxant and Tylenol No. 3 with preliminary diagnosis of tension headache. However, these medications have not been giving her any relief and came for evaluation. The patient does report history of migraine headaches, but does not believe this is one. She denies any sensitivity to light. Denies nausea or vomiting. She reports that all of her head is hurting and it kind of comes in waves. She denies any muscle weakness or vision changes. She denies any fever or recent illness, any other medication use. She denies chest pain, shortness of breath, nausea, vomiting at initial evaluation, diarrhea, constipation, hip problems, knee problems, muscle weakness, vaginal bleeding, leakage of fluid, urinary urgency or frequency. PAST MEDICAL HISTORY: Negative. PAST SURGICAL HISTORY: Negative. ALLERGIES: REGLAN, WHICH CAUSES FACIAL SPASMS. MEDICATIONS: vitamins and recent prescription of Tylenol No. 3 and muscle relaxant. SOCIAL HISTORY: Denies drug, alcohol, or tobacco use. OB HISTORY: She has had 2 term spontaneous vaginal deliveries and a first trimester loss. REVIEW OF SYSTEMS: Per HPI. PHYSICAL EXAMINATION: VITAL SIGNS: Initial blood pressure is 142/75, however, after during the subsequent 4 hours, the patient has been here. Blood pressures have been 100 to one teens over 50s to 70s, pulse in the 80 to 90s, respiratory rate 18. GENERAL: The patient does appear to be in some distress and discomfort, sitting up forward, as lying down makes her head worse. LUNGS: Clear to auscultation. HEART: Has regular rate and rhythm. ABDOMEN: Gravid, soft, nontender. EXTREMITIES: Nontender. Nonedematous. DTRs are present, but not brisk. DIAGNOSTIC DATA: heart tracing shows the fetus with a baseline in the 130s with moderate long-term variability, positive 15 x 15 accelerations, no decelerations. Tocometer showing some irritability and contractions, but not noticed by the patient. CT scan without contrast was ordered for her head given the acute nature of her headache and the severity. Report shows no acute intracranial process. LABORATORY WORK: White count is 14.1, hemoglobin 10.9, hematocrit 34.0, and platelets of 283,000. Sodium of 136, potassium of 4.2, creatinine of 0.59, uric acid of 3.5, AST of 13, and ALT of 11. Urine negative for protein, nitrites, leukocyte esterase, white blood cells, red blood cells, and squamous cells. ASSESSMENT AND PLAN: During the course of her stay, the patient has been given 50 mg of Benadryl, a total of 8 mg of morphine, liter of IV fluids, and 4 g of magnesium over the course of 4 hours. The patient also had some tactile manipulation of the musculature in her neck and scalp as by towards the end of our encounter, the patient reports the most of her headache seems to be coming from the back of her neck and back of her head at that time. By the end of the encounter, the patient reports that her headache was still present, but more than half reduced. The patient at this time is being discharged home. She has a ride and has been given labor precautions and instructions to seek medical attention. Should her headaches persist and not improve. She does have a plan to call Dr. Clark this morning. Per Dr. Clark's instructions, given that her medications have not been helping her as desired. Job ID: [id number]
--- NOTE | 2019-12-14 08:54 | CT ---
PRELIMINARY REPORT/[facility]/EMERGENCY AFTER HOURS PROCEDURE: EXAM: CT Head Without Intravenous Contrast. CLINICAL HISTORY: LYONS x5 days TECHNIQUE: Axial computed tomography images of the head/brain without intravenous contrast. COMPARISON: None provided. FINDINGS: BRAIN: No acute intraparenchymal hemorrhage. No mass lesion. No CT evidence for acute territorial inf arct. No midline shift or extra-axial collection. VENTRICLES: No hydrocephalus. ORBITS: The orbits are unremarkable. SINUSES AND MASTOIDS: There is moderate bilateral sphenoid sinus inflammatory changes with small air- fluid levels. SOFT TISSUES: No significant facial or scalp soft tissue swelling evident. No radiopaque foreign body is seen. BONES: No acute skull fracture. IMPRESSION: No acute intracranial abnormality. Bilateral sphenoid sinusitis. ELECTRONICALLY SIGNED BY: Naa Pastor D.O. Dec 14, 2019 1:53:58 AM [employer] This report is intended for review by the ordering physician only, in accordance of law. If you recei ve this report in error, please call [facility] at [phone]. FINAL REPORT HEAD CT WITHOUT CONTRAST: HISTORY: Headache, x 5 days. COMPARISON: None. FINDINGS: No parenchymal hemorrhage. No extraaxial hematoma. No midline shift. Brain volume is age appropria te. Cortical osborn-white matter differentiation is preserved. No hydrocephalus. Intact calvarium. B ilateral sphenoid sinus mucosal disease. IMPRESSION: This report is in agreement with the preliminary report by [facility]. No acute intracranial p rocess. Bilateral sphenoid sinus disease. POS: [facility]
== END 2019-12-14 05:10 | disposition home or self-care (01) ==
LOC: L&D/OP 00:20
PROVIDERS: ATTEND Family Medicine
DX: O99.89 Other specified diseases and conditions complicating pregnancy, childbirth and the puerperium (principal); R51 Headache; Z3A.36 36 weeks gestation of pregnancy; Z79.899 Other long term (current) drug therapy; Z88.8 Allergy status to other drugs, medicaments and biological substances
CPT/HCPCS: 36415; 70450; 80053; 81001; 84550; 85027; 96365; 96366; 96375; 99283; J1200; J2270; J3475

== ENCOUNTER 2019-12-27 10:30 | Day surgery (SDC) | payer OTHER ==
[2019-12-27 11:01] VITALS: BMI 33.6
[2019-12-27] MEDS ORDERED: hydrALAZINE 20 MG/ML VIAL SLOW IVP PRN (13:11)
--- NOTE | 2019-12-27 13:57 | PRG ---
DATE OF SERVICE: 12/27/2019 TIME OF SERVICE: 1310 hours. PRESENTING COMPLAINT: Contractions at 37 to 38 weeks gestation. HISTORY OF PRESENT ILLNESS: Ms. Packer is a 29-year-old 3, para 2, EDC of 01/12, , who presents complaining of contractions this morning. She denies rupture of membranes. She reports an active fetus. PRESIDENT HISTORY: x2, uncomplicated . Dr. Brian Clark for antepartum care. Laboratory; group B strep negative. Blood type, unable to locate in the antepartum record. Rubella immune. VDRL nonreactive. Hepatitis B, GC, chlamydia negative. PAST MEDICAL HISTORY: None. PAST SURGICAL HISTORY: None. ALLERGIES: DENIES. MEDICATIONS: vitamins. SOCIAL HISTORY: Denies tobacco, alcohol, or IV drug use. FAMILY HISTORY: Noncontributory. REVIEW OF SYSTEMS: Noncontributory. PHYSICAL EXAMINATION: GENERAL: female, in no acute distress. VITAL SIGNS: Blood pressure 118/72, pulse 85, respirations 18, temperature 98.6. HEENT: Within normal limits. LUNGS: Clear to auscultation bilaterally. ABDOMEN: Soft, nontender. Occasional palpable contractions every 10 minutes. FHTs 140s, full, without lesions. Vagina, discharge. Cervix was 150, -3, cephalic x2 when checked over an approximately 2-hour period. Continuous monitoring is carried out with a category 1 tracing. No evidence of active labor. IMPRESSION: no evidence of active labor at 37 to 38 weeks gestation. PLAN: Discharge home. ER precautions. Keep scheduled followup with Dr. Clark. Job ID: [id number]
== END 2019-12-27 13:14 | disposition home or self-care (01) ==
LOC: L&D/OP 10:30
PROVIDERS: ATTEND Family Medicine
DX: O47.1 False labor at or after 37 completed weeks of gestation (principal); Z3A.38 38 weeks gestation of pregnancy; Z88.8 Allergy status to other drugs, medicaments and biological substances

== ENCOUNTER 2019-12-28 14:24 | Inpatient (IN) | payer OTHER ==
[~2019-12-28 14:24] MED LIST changes: +Bupivacaine 0.25% 10 ML VIAL ONE; -ISOVUE-370 76%-LOCM 1 ML ONE
[2019-12-28 15:12] VITALS: BMI 35.6
[2019-12-28] MEDS ORDERED: hydrALAZINE 20 MG/ML VIAL SLOW IVP PRN ×2 (15:33→15:52)
--- NOTE | 2019-12-28 15:35 | PDOC.LDHP ---
Labor and Delivery H&P Chief complaint: other (LOF since Membrane stripping) HPI: Patient of Dr Clark Patient is a 29 yo A1 who is at 38 weeks s/p office visit this am with Eduardo who performed membrane stripping. Pt states leaking sincve clear fluid. No VB, no real CTX pattern. Good FM. review of Systems: complete ROS performed and as per HPI. Current gestational age (weeks): 38 Dating criteria: last menstrual period Grav: 4 Para: 2 OB History Details: SVD2 Current complications: none Abnormal US findings: No Current medications: pre-maria isabel vitamins Previous surgical history: none Allergies/Adverse Reactions: Allergies Allergy/AdvReac Type Severity Reaction Status Date / Time metoclopramide HCl Allergy Intermediate Verified 09/17/19 10:26 [From Darryl] Social history: none - Physical Exam Vital signs reviewed and normal: yes (121/75 104 98.2) General: NAD Heart: RRR Lungs: CTAB Abdomen: gravid Extremeties: no edema - Assessment Here at early term with possible ROM. - Plan Plan: observation in L&D ([facility]. Sterile spec exam. Check CX)
[2019-12-28 15:39] LABS: Amnisure Internal Control QC ACCEPTABLE (ACCEPTABLE)
[2019-12-28 15:41] LABS: Amnisure Test No Membranes Rupture (No Rupture)
[2019-12-28] MEDS ORDERED: Butorphanol Tartrate 1 MG/ML VIAL SLOW IVP PRN (15:52)
[2019-12-28] MEDS ORDERED: Ondansetron PF 4 MG/2 ML Vial IVP PRN ×2 (15:52→21:09)
[2019-12-28] MEDS ORDERED: Ibuprofen 800 MG TAB PO PRN (15:52)
[2019-12-28] MEDS ORDERED: Promethazine HCl 25 MG/ML VIAL IM PRN ×2 (15:52→21:09)
[2019-12-28] MEDS ORDERED: NS / Oxytocin 40 units/1000ml 1,000 ML IV PRN ×2 (15:52→17:55)
[2019-12-28] MEDS ORDERED: HYDROcodone/Acetaminophen 5/325 mg Tablet PO PRN ×2 (15:52)
[2019-12-28] MEDS ORDERED: Lidocaine 1% (PF) 30 ML VIAL SC PRN ×2 (15:52→17:55)
--- NOTE | 2019-12-28 15:53 | PDOC.EVN ---
Event Note - Event Note Event Note: SSE explained to patient by me: SSE with yeast vaginalis. Clear fluid noted PV at posteror fornix. CX checked sterilly by me after exam.../-2 Cephalic Will admit. Exam was pos for ROM while was negative
--- NOTE | 2019-12-28 15:54 | PDOC.EVN ---
Event Note - Event Note Event Note: GBS is negative in record
[2019-12-28] MEDS ORDERED: NS w/ Oxytocin 10 units 500 ML ONE (17:01)
[2019-12-28 17:07] LABS: Hemoglobin 10.8 g/dL (12.0-16.0); Mean Corpuscular HGB CONC 35.1 g/dL (32.0-36.0); Mean Corpuscular Hemoglobin 31.2 pg (27.0-31.0); Mean Platelet Volume 8.9 fL (7.4-10.4); Platelet Count 281 thou/uL (130-400); RBC Distribution Width 12.6 % (11.5-14.5); Red Blood Cell (RBC) Count 3.45 mill/uL (4.20-5.40); White Blood Cell (WBC) Count 9.8 thou/uL (4.8-10.8)
[2019-12-28] MEDS: Lactated Ringer's 1,000 ML IV SCH ×2 (17:48→21:08)
[2019-12-28] MEDS ORDERED: NS w/ Oxytocin 10 units 500 ML IV SCH (18:00)
[2019-12-28 18:55] LABS: Syphilis Antibody Nonreactive (Nonreactive); Syphilis Antibody Index 0.02 S/CO (<1.00 Non-Reactive)
[2019-12-28] MEDS ORDERED: Fentanyl 4 mcg/Bup 0.1% Cadd 100 ML ONE (20:15)
[2019-12-28] MEDS ORDERED: Naloxone HCl 0.4 mg/ml Vial IVP PRN ×2 (21:09)
[2019-12-28] MEDS ORDERED: Acetaminophen 325 MG TAB PO PRN (21:09)
[2019-12-28] MEDS ORDERED: EPHEDRINE 25 MG/5 ML SYRINGE SLOW IVP PRN (21:09)
[2019-12-28] MEDS ORDERED: diphenhydrAMINE 50 MG/ML VIAL IVP PRN (21:09)
[2019-12-28] MEDS ORDERED: Lactated Ringer's 500 ML IV PRN (21:09)
[2019-12-28] MEDS ORDERED: Fentanyl 4 mcg/Bupivacaine 0.1% Cassette 100 ML EPIDURAL SCH (21:15)
[2019-12-28] MEDS ORDERED: Communication Order-Pharmacy FS SCH (21:15)
[2019-12-28 22:18] LABS: Hep B Surf Ag Non-Reactive S/CO (NonReactive)
[2019-12-28 22:19] LABS: HIV (1/2) Antibody/Antigen Non-Reactive (NonReactive); HIV 1/2 INDEX 0.17 S/CO (<1.00)
[2019-12-29] MEDS ORDERED: Misoprostol 200 MCG TAB ONE (00:56)
--- NOTE | 2019-12-29 01:06 | PDOC.OPDEL ---
OB Operative/Delivery Note Delivery Dr/Surgeon: Eduardo Pre-Delivery Diagnosis: active labor, ruptured membrane Procedure/Post Delivery Dx: spontaneous vaginal delivery (Head OA, asynclitic, no nuchal cord, shoulders and body easily followed, placed on mother's abdomen, cord clamped and cut.) Weeks gestation: 38 Anesthesia: epidural - Findings A Sex: female - 1 min: 9 - 5 min: 9 - Additional Findings/Plan Placenta delivered: spontaneous (Intact, 3 vessel cord) Repaired Obstetrical Laceration: none Estimated blood loss: 250 Post delivery plan: routine recovery
[2019-12-29] MEDS ORDERED: Milk Of Magnesia 30 ML UDCUP PO PRN (03:27)
[2019-12-29] MEDS ORDERED: Benzocaine-Menthol 82.5 ML CAN TOP PRN (03:27)
[2019-12-29] MEDS ORDERED: NS / Oxytocin 40 units/1000ml 1,000 ML IV SCH (03:27)
[2019-12-29] MEDS ORDERED: Preparation H Ointment 28 GM TUBE PR PRN (03:27)
[2019-12-29] MEDS ORDERED: hydrALAZINE 20 MG/ML VIAL SLOW IVP PRN (03:27)
[2019-12-29] MEDS ORDERED: Bisacodyl 10 MG SUPP PR PRN (03:27)
[2019-12-29] MEDS ORDERED: Lanolin Ointment 7 GM TUBE TOP PRN (03:27)
[2019-12-29] MEDS: Ibuprofen 800 MG TAB PO SCH ×3 (03:42→21:17)
[2019-12-29] MEDS: Docusate Calcium (SURFAK) 240 MG CAP PO SCH ×2 (08:47→21:17)
[2019-12-29] MEDS: Ferrous Sulfate 325 MG TAB PO SCH ×2 (08:48→16:41)
[2019-12-29] MEDS: HYDROcodone/Acetaminophen 5/325 mg Tablet PO PRN ×2 (15:33→23:00)
[2019-12-30] MEDS: Ibuprofen 800 MG TAB PO SCH ×2 (04:37→14:12)
[2019-12-30 08:27] VITALS: BP 126/82; TEMP 98.7
[2019-12-30] MEDS: Ferrous Sulfate 325 MG TAB PO SCH (09:11)
[2019-12-30] MEDS: Docusate Calcium (SURFAK) 240 MG CAP PO SCH (09:48)
--- NOTE | 2019-12-30 12:09 | PDOC.PP ---
Post Progress Note Post Day #: 1 Subjective: Doing well, no complaints, well, wants to go home PO intake tolerated: yes Flatus: yes Ambulation: yes Vital Signs (12 hours) Temp Pulse Resp BP Pulse Ox 12/30/19 07:26 98.7 F 78 12 126/82 98 Weight Weight 214 lb - Physical Examination General: NAD Cardiovascular: no m/r/g, RRR Respiratory: clear to auscultation bilaterally, non-labored breathing Abdominal: + bowel sounds, lochia, no distention, appropriately TTP Extremities: negative homans (B) Neurological: no gross focal deficits Psychiatric: A&Ox3 Result Diagrams: 12/28/19 16:52 Additional Labs: Post Labs Blood Type A POSITIVE 12/28/19 16:52 Hep Bs Antigen Non-Reactive S/CO (NonReactive) 12/28/19 17:56 (1) Vaginal delivery Code(s): O80 - ENCOUNTER FOR FULL-TERM UNCOMPLICATED DELIVERY Status: Acute - Assessment/Plan Routine PP care D/C home F/U with baby tomorrow, for PP in 6 weeks
== END 2019-12-30 15:20 | disposition home or self-care (01) | DRG 807 ==
LOC: L&D/OP 14:24 → L&D 17:05 → 3SW 12-29 03:21
PROVIDERS: ADMIT Family Medicine; ATTEND Family Medicine
PROC: 10E0XZZ Delivery of Products of Conception, External Approach (ICD-10-PCS; principal; 2019-12-29)
DX: O80 Encounter for full-term uncomplicated delivery (principal); Z37.0 Single live birth; Z3A.38 38 weeks gestation of pregnancy
CPT/HCPCS: 36415; 84112; 85027; 86780; 86850; 86900; 86901; 87340; 87389; J2405; J2590; S0020

== ENCOUNTER 2020-08-05 01:39 | Emergency (ER) | payer OTHER, SELFPAY ==
[2020-08-05 02:17] LABS: #Basophils 0.1 thou/uL (0.0-0.2); #Eosinphils 0.1 thou/uL (0.0-0.7); #Lymphocytes 3.1 thou/uL (1.20-3.40); #Monocytes 0.5 thou/uL (0.11-0.59); #Neutrophils 3.5 thou/uL (1.40-6.50); %Basophils 1.7 % (0.0-1.0); %Eosinophils 1.9 % (0.0-10.0); %Lymphocytes 42.1 % (21.0-51.0); %Monocytes 6.6 % (0.0-10.0); %Neutrophils 47.6 % (42.0-75.0); Hemoglobin 13.5 g/dL (12.0-16.0); Mean Corpuscular HGB CONC 33.8 g/dL (32.0-36.0); Mean Corpuscular Hemoglobin 31.9 pg (27.0-31.0); Mean Corpuscular Volume 94.2 fL (78.0-98.0); Mean Platelet Volume 7.8 fL (7.4-10.4); Platelet Count 294 thou/uL (130-400); RBC Distribution Width 11.9 % (11.5-14.5); Red Blood Cell (RBC) Count 4.22 mill/uL (4.20-5.40); White Blood Cell (WBC) Count 7.3 thou/uL (4.8-10.8)
[2020-08-05] MEDS ORDERED: Acetaminophen 500 MG TAB ONE (02:21)
[2020-08-05] MEDS ORDERED: Ketorolac Tromethamine 30 MG/ML VIAL ONE (02:21)
[2020-08-05 02:29] LABS: BHCG - Serum Negative (NEGATIVE); Pregs Control Background? CLEAR/WHITE (CLR/WHITE); Pregs Control Bar Appear? YES (CONTROL BAR)
[2020-08-05 02:29] LABS: Bilirubin Negative (Negative); Blood, Urine Negative (Negative); Clarity Clear (Clear); Glucose, Urine (Dipstick) Normal (Negative); Ketone, Urine Negative (Negative); Leukocyte Negative Leu/uL (Negative); Nitrite Negative (Negative); Protein, Urine (Dipstick) 20 mg/dL (Neg-Trace); Specific Gravity, Urine 1.034 (1.002-1.036)
[2020-08-05 02:34] LABS: ALT (SGPT) 17 U/L (8-55); AST (SGOT) 15 U/L (5-34); Albumin 4.4 g/dL (3.5-5.0); Alkaline Phosphatase 65 U/L (40-110); Anion Gap 14 mmol/L (10-20); BUN (Urea Nitrogen) 17 mg/dL (7.0-18.7); Bilirubin, Total 0.3 mg/dL (0.2-1.2); Calc. Creatinine Clearance 0 mL/min (70-130); Calcium 9.4 mg/dL (7.8-10.44); Carbon Dioxide 26 mmol/L (22-29); Chloride 105 mmol/L (98-107); Estimated GFR-MDRD 75; Globulin 2.7 g/dL (2.4-3.5); Glucose 102 mg/dL (70-105); Potassium 3.9 mmol/L (3.5-5.1); Protein, Total 7.1 g/dL (6.0-8.3); Sodium 141 mmol/L (136-145)
== END 2020-08-05 03:10 | disposition home or self-care (01) ==
LOC: ERS 01:39
DX: E28.2 Polycystic ovarian syndrome (principal); F41.9 Anxiety disorder, unspecified
CPT/HCPCS: 36415; 80053; 81003; 84703; 85025; 96372; 99284; J1885

== ENCOUNTER 2023-01-16 07:13 | Emergency (ER) | payer OTHER ==
[2023-01-16 08:26] LABS: Bacteria/HPF 1+ HPF (None Seen); Bilirubin Negative (Negative); Blood, Urine 3+ (Negative); Clarity Cloudy (Clear); Glucose, Urine (Dipstick) Normal (Negative); Ketone, Urine Negative (Negative); Leukocyte Negative Leu/uL (Negative); Nitrite Negative (Negative); Protein, Urine (Dipstick) Negative (Neg-Trace); Specific Gravity, Urine 1.016 (1.002-1.036); Urobilinogen Normal mg/dL (Less than 2); WBC/HPF 0-3 HPF (0-3)
== END 2023-01-16 09:32 | disposition home or self-care (01) ==
LOC: ERS 07:13
DX: O03.88 Urinary tract infection following complete or unspecified spontaneous abortion (principal); Z3A.01 Less than 8 weeks gestation of pregnancy
CPT/HCPCS: 36415; 76856; 81003; 81015; 84702

== ENCOUNTER 2023-09-14 16:11 | Emergency (ER) | payer OTHER, SELFPAY ==
[2023-09-14] MEDS ORDERED: Ondansetron ODT 4 MG TAB ONE (18:58)
[2023-09-14 20:23] LABS: SARS-CoV-2 NAA Rapid Test Not Detected (NotDetected)
== END 2023-09-14 20:10 | disposition home or self-care (01) ==
LOC: ERS 16:11
DX: R11.2 Nausea with vomiting, unspecified (principal); M79.10 Myalgia, unspecified site; Z20.822 Contact with and (suspected) exposure to COVID-19
CPT/HCPCS: 93005; Q0162

== ENCOUNTER 2023-09-16 07:49 | Emergency (ER) | payer SELFPAY ==
[2023-09-16 08:18] LABS: #Eosinphils 0.1 thou/uL (0.0-0.7); #Monocytes 0.3 thou/uL (0.11-0.59); #Neutrophils 2.3 thou/uL (1.40-6.50); %Basophils 0.7 % (0.0-1.0); %Eosinophils 2.3 % (0.0-10.0); %Lymphocytes 37.8 % (21.0-51.0); %Monocytes 6.6 % (0.0-10.0); %Neutrophils 52.4 % (42.0-75.0); Hematocrit 36.7 % (36.0-47.0); Hemoglobin 12.4 g/dL (12.0-16.0); Mean Corpuscular HGB CONC 33.8 g/dL (32.0-36.0); Mean Corpuscular Hemoglobin 32.2 pg (27.0-31.0); Mean Corpuscular Volume 95.3 fl (78.0-98.0); Mean Platelet Volume 9.6 fL (7.4-10.4); Platelet Count 246 10x3/uL (130-400); RBC Distribution Width 12.5 % (11.5-14.5); Red Blood Cell (RBC) Count 3.85 mill/uL (4.20-5.40); White Blood Cell (WBC) Count 4.4 10x3/uL (4.8-10.8)
[2023-09-16] MEDS ORDERED: Ondansetron PF 4 MG/2 ML Vial ONE (08:29)
[2023-09-16 08:43] LABS: ALT (SGPT) 11 U/L (8-55); AST (SGOT) 15 U/L (5-34); Albumin 4.4 g/dL (3.5-5.0); Alkaline Phosphatase 44 U/L (40-110); Anion Gap 11 mmol/L (10-20); BUN (Urea Nitrogen) 17 mg/dL (7.0-18.7); Bilirubin, Total 0.2 mg/dL (0.2-1.2); Calc. Creatinine Clearance 0 mL/min (70-130); Calcium 8.5 mg/dL (7.8-10.44); Carbon Dioxide 25 mmol/L (22-29); Chloride 108 mmol/L (98-107); Estimated GFR 101; Globulin 2.4 g/dL (2.4-3.5); Glucose 100 mg/dL (70-105); Potassium 4.1 mmol/L (3.5-5.1); Protein, Total 6.8 g/dL (6.0-8.3); Sodium 140 mmol/L (136-145)
[2023-09-16 08:44] LABS: BHCG - Serum Negative (NEGATIVE); Pregs Control Background? CLEAR/WHITE (CLR/WHITE); Pregs Control Bar Appear? YES (CONTROL BAR)
[2023-09-16 08:57] LABS: Bilirubin Negative (Negative); Blood, Urine Large (Negative); Glucose, Urine (Dipstick) Negative (Negative); Ketone, Urine Negative (Negative); Leukocyte Negative (Negative); Nitrite Negative (Negative); Protein, Urine (Dipstick) Negative (Neg-Trace); Specific Gravity, Urine 1.025 (1.005-1.030); Urobilinogen 0.2 mg/dL (Less than 2)
[2023-09-16 09:02] LABS: Clarity Clear (Clear)
== END 2023-09-16 09:31 | disposition home or self-care (01) ==
LOC: ERS 07:49
DX: R11.2 Nausea with vomiting, unspecified (principal); R10.9 Unspecified abdominal pain; R51.9 Headache, unspecified
CPT/HCPCS: 36415; 80053; 81001; 83690; 84703; 85025; 96361; 96374; J2405